=== PATIENT | male | born 1955 | race Caucasian/White ===

== ENCOUNTER 2016-12-25 11:47 | Emergency (ER) | payer OTHER, BC ==
[~2016-12-25] VITALS: Ht 177.8 cm; Wt 124.9 kg
[~2016-12-25 11:47] MED LIST: ABILIFY10 MG PO; ABILIFY5 MG PO; ADVIL200 MG PO; ANAPROX DS550 M1 PO; ATIVAN0.5 M1 GT; ATIVAN0.5 MG PO; AZITHROMYCIN500 M1 PO; BUPROPION HCL100 MG PO; BUSPAR10 MG PO; BUSPAR30 MG PO; BUSPIRONE HCL10 MG PO; CEFTIN500 MG PO; CYMBALTA60 MG PO; EFFEXOR XR75 MG PO; ESCITALOPRAM OX10 MG PO; FINASTERIDE5 M1 PO; FLEXERIL5 MG PO; FLOMAX0.4 M1 PO; FLOMAX0.4 MG PO; FLOVENT 11120 INHALA IH; HYDROCODON-ACE1 EAC7 PO; KEFLEX500 MG PO; LANTUS 3 M100 UNITS1 SC; LEXAPRO10 MG PO; LO-DOSE ASPIRIN81 M1 PO; LOPRESSOR100 M1 PO; LORAZEPAM0.5 MG PO; LORCET 5-325 M1 EACH PO; LOXAPINE10 MG PO; LOXITANE PO; LYRICA100 MG PO; LYRICA200 MG PO; LYRICA300 MG PO; MECLIZINE HCL25 MG PO; METOPROLOL SUCC25 MG PO; METOPROLOL TART50 MG PO; MOTRIN400 MG PO; PREDNISONE20 MG PO; PROTONIX40 MG PO; PROZAC40 MG PO; QVAR 80 MCG IN7.3 GM IH; RISPERDAL3 MG PO; RISPERDAL4 MG PO; SIMVASTATIN40 M1 PO; SLEEP AID25 M2 PO; TRAMADOL HCL50 MG PO; ULTRAM50 MG PO; VENLAFAXINE HCL75 M3 PO; VENTOLIN HFA18 GM IH; WELLBUTRIN XL300 MG PO; WELLBUTRIN100 MG PO; ZITHROMAX250 MG PO
[2016-12-25 12:05] VITALS: BP 118/79
[2016-12-25 12:20] LABS: POINT-OF-CARE METER ID UU13113778
== END 2016-12-25 16:00 | disposition left against medical advice (07) ==
LOC: EME 11:47
DX: R42 Dizziness and giddiness (principal); H53.8 Other visual disturbances; Z53.21 Procedure and treatment not carried out due to patient leaving prior to being seen by health care provider
CPT/HCPCS: 82948

== ENCOUNTER 2017-05-18 06:15 | Inpatient (IN) | payer OTHER, BC ==
[2017-05-18] VITALS (8 sets, daily range): BP systolic 93–129; BP diastolic 56–77
[~2017-05-18] VITALS: Ht 177.8 cm; Wt 126.8 kg
[2017-05-18 07:05] LABS: HEMATOCRIT 43.7 % (38.0-50.0); MCH 28.7 PG (29.0-34.0); MCHC 32.7 G/DL (30.0-36.0); MCV 87.6 FL (86-99); MEAN PLAT.VOLUME 11.6 uM^3 (9.0-12.4); PLATELET COUNT 195 K/uL (156-360); RBC DIS.WIDTH-CV 13.2 % (11.8-14.6); RED BLOOD COUNT 4.99 M/uL (4.00-5.50); WHITE BLOOD COUNT 21.8 K/uL (4.1-10.2)
[2017-05-18] MEDS ORDERED: LYRICA200 MG PO (07:16)
[2017-05-18] MEDS ORDERED: WELLBUTRIN XL300 MG PO (07:17)
[2017-05-18] MEDS ORDERED: LEXAPRO20 MG PO (07:18)
[2017-05-18] MEDS ORDERED: LO-DOSE ASPIRIN81 M2 PO (07:20)
[2017-05-18] MEDS ORDERED: METOPROLOL SUCC25 MG PO (07:20)
[2017-05-18] MEDS ORDERED: FLOVENT 11120 INHALA IH (07:21)
[2017-05-18] MEDS ORDERED: COLACE CLEAR50 MG PO (07:21)
[2017-05-18] MEDS ORDERED: NOVOLIN N100 UNITS/ SC (07:22)
[2017-05-18 07:32] LABS: ANION GAP 12 MEQ/L (2-14); CHLORIDE 98 MEQ/L (99-109); POTASSIUM 3.7 MEQ/L (3.7-5.4); SAMPLE HEMOLYSIS CHECK 0; SAMPLE ICTERIC CHECK 0; SAMPLE LIPEMIA CHECK 0; SODIUM 133 MEQ/L (136-147); TOTAL BILIRUBIN 0.9 MG/DL (0.0-1.0)
[2017-05-18 07:37] LABS: TROP-I INTERPRETATION NEGATIVE; TROPONIN-I < 0.01 ng/mL (0.0-0.30)
[2017-05-18 07:38] LABS: ALKALINE PHOSPHATASE 34 IU/L (3-129); GFR ESTIMATE (CALCULATED) > 59 mL/min/; GLUCOSE 192 mg/dL (70-99); LIPASE 5 U/L (1.0-51.0); UREA NITROGEN (BUN) 15 mg/dL (9-23)
[2017-05-18 09:00] LABS: POINT-OF-CARE METER ID UU14100415
[2017-05-18 12:50] LABS: POINT-OF-CARE METER ID UU14208750
[2017-05-18 20:50] LABS: POINT-OF-CARE METER ID UU13113675
[2017-05-18 21:00] LABS: BASE EXCESS 0 mEq/L (-3 to +3); BICARBONATE 26.4 mEq/L (22-26); CARBOXY HGB 2.2 % (0-5); METHEMOGLOBIN 1.8 % (0-1.5); PCO2 49 mm Hg (35-45); PO2 83 mm Hg (80-100); pH 7.34 (7.35-7.45)
[2017-05-18 21:01] LABS: COMMENTS - BLOOD GASES A+C+; DEVICE VENT; FI02 100 %; MECHANICAL RATE 10 resp/min; MODE AC; SITE RR; TOTAL RESP RATE 10 resp/min
[2017-05-18 21:02] LABS: PEEP 5 CM/H20; TIDAL VOLUME 700 ML
[2017-05-18 21:49] LABS: EOSINOPHIL (%) 0 % (0-5); HEMATOCRIT 38.7 % (38.0-50.0); IMMATURE GRANULOCYTE (%) 0.7 % (0.0-0.7); IMMATURE GRANULOCYTE COUNT 0.2 K/uL; INSTRUMENT ABS NEUTROPHIL CT 22.2 K/uL; LYMPHOCYTE COUNT 0.9 K/uL (1.0-2.8); MCH 29.5 PG (29.0-34.0); MCHC 32.6 G/DL (30.0-36.0); MCV 90.6 FL (86-99); MEAN PLAT.VOLUME 11.2 uM^3 (9.0-12.4); MONOCYTE (%) 9.2 % (3-12); MONOCYTE COUNT 2.4 K/uL (0-0.8); NEUTROPHIL (%) 86.5 % (45-76); NEUTROPHIL COUNT 22.2 K/uL (1.8-6.4); PLATELET COUNT 188 K/uL (156-360); RBC DIS.WIDTH-CV 13.5 % (11.8-14.6); RBC DIS.WIDTH-SD 45.4 % (39-53); RED BLOOD COUNT 4.27 M/uL (4.00-5.50); WHITE BLOOD COUNT 25.6 K/uL (4.1-10.2)
[2017-05-18 21:59] LABS: BASE EXCESS 0.3 mEq/L (-3 to +3); CARBOXY HGB 2.4 % (0-5); METHEMOGLOBIN 1.7 % (0-1.5); PCO2 45 mm Hg (35-45); pH 7.37 (7.35-7.45)
[2017-05-18 22:00] LABS: ANION GAP 10 MEQ/L (2-14); CHLORIDE 102 MEQ/L (99-109); MAGNESIUM 1.6 mg/dl (1.3-2.7); POTASSIUM 4.1 MEQ/L (3.7-5.4); SAMPLE HEMOLYSIS CHECK 0; SAMPLE ICTERIC CHECK 0; SAMPLE LIPEMIA CHECK 0; SODIUM 135 MEQ/L (136-147)
[2017-05-18 22:00] LABS: COMMENTS - BLOOD GASES A+C+; DEVICE VENT; FI02 50 %; MECHANICAL RATE 16 resp/min; MODE AC; PEEP 5 CM/H20; PO2 66 mm Hg (80-100); SITE RR; TIDAL VOLUME 600 ML; TOTAL RESP RATE 16 resp/min
[2017-05-18 22:22] LABS: ALKALINE PHOSPHATASE 25 IU/L (3-129); GFR ESTIMATE (CALCULATED) > 59 mL/min/; GLUCOSE 163 mg/dL (70-99); UREA NITROGEN (BUN) 17 mg/dL (9-23)
[2017-05-18 23:07] LABS: METH RESISTANT S AUREUS PCR NEGATIVE (NEGATIVE)
[2017-05-18 23:08] LABS: PROBE CHECK PASS; SPECIMEN PROCESSING CONTROL PASS
[2017-05-18 23:57] LABS: CREATINE KINASE 332 IU/L (1-294)
[2017-05-19] VITALS (26 sets, daily range): BP systolic 84–156; BP diastolic 45–82
[2017-05-19 05:30] LABS: POINT-OF-CARE METER ID UU13113731
[2017-05-19 05:38] LABS: ADD MIUA? YES; BILIRUBIN NEGATIVE; BLOOD LARGE; COLOR YELLOW ((YELLOW)); GLUCOSE (STRIP) NEGATIVE; KETONES NEGATIVE; LEUKOCYTES NEGATIVE; NITRITE NEGATIVE; PROTEIN (STRIP) 30; SPECIFIC GRAVITY 1.018 (1.000-1.030); UROBILINOGEN 0.2 MG/DL (0.2-1.0)
[2017-05-19 05:47] LABS: EOSINOPHIL (%) 0.1 % (0-5); HEMATOCRIT 36.1 % (38.0-50.0); IMMATURE GRANULOCYTE (%) 0.5 % (0.0-0.7); LYMPHOCYTE COUNT 1.8 K/uL (1.0-2.8); MCHC 31.9 G/DL (30.0-36.0); MCV 90.9 FL (86-99); MEAN PLAT.VOLUME 11.7 uM^3 (9.0-12.4); MONOCYTE (%) 9.9 % (3-12); MONOCYTE COUNT 1.8 K/uL (0-0.8); NEUTROPHIL (%) 79.6 % (45-76); PLATELET COUNT 156 K/uL (156-360); RBC DIS.WIDTH-CV 13.4 % (11.8-14.6); RBC DIS.WIDTH-SD 45.6 % (39-53); RED BLOOD COUNT 3.97 M/uL (4.00-5.50); WHITE BLOOD COUNT 18.1 K/uL (4.1-10.2)
[2017-05-19 05:48] LABS: IMMATURE GRANULOCYTE COUNT 0.1 K/uL; INSTRUMENT ABS NEUTROPHIL CT 14.4 K/uL; NEUTROPHIL COUNT 14.4 K/uL (1.8-6.4)
[2017-05-19 06:04] LABS: RED BLOOD CELLS 15-20 /HPF (0-5)
[2017-05-19 06:05] LABS: BACTERIA 2+ /HPF; CASTS NONE SEEN /LPF; EPITHELIAL CELLS RARE /HPF; MUCUS NONE SEEN /LPF; UCUL ADDED? NO; WHITE BLOOD CELLS NONE SEEN /HPF (0-5)
[2017-05-19 06:06] LABS: AMORPHOUS URATES CRYSTALS 2+; CRYSTALS PRESENT
[2017-05-19 06:10] LABS: ALKALINE PHOSPHATASE 26 IU/L (3-129); ANION GAP 9 MEQ/L (2-14); CHLORIDE 105 MEQ/L (99-109); GFR ESTIMATE (CALCULATED) > 59 mL/min/; GLUCOSE 113 mg/dL (70-99); POTASSIUM 3.8 MEQ/L (3.7-5.4); SAMPLE HEMOLYSIS CHECK 0; SAMPLE ICTERIC CHECK 0; SAMPLE LIPEMIA CHECK 0; SODIUM 138 MEQ/L (136-147); TOTAL BILIRUBIN 0.7 MG/DL (0.0-1.0); UREA NITROGEN (BUN) 16 mg/dL (9-23)
[2017-05-19 11:14] LABS: BASE EXCESS 0.5 mEq/L (-3 to +3); BICARBONATE 25.4 mEq/L (22-26); CARBOXY HGB 1.4 % (0-5); METHEMOGLOBIN 1.5 % (0-1.5); PCO2 41 mm Hg (35-45); PO2 67 mm Hg (80-100)
[2017-05-19 11:15] LABS: COMMENTS - BLOOD GASES NAC+; CONTINUOUS POS AIRWAY PRESSURE 5 cm H2O; DEVICE 840; FI02 50 %; MODE SPONT; PRES. SUPPORT 15 CM/H2O; SITE LR; TOTAL RESP RATE 27 resp/min
[2017-05-19 11:56] LABS: POINT-OF-CARE METER ID UU13113731
[2017-05-19 15:02] LABS: ANION GAP 9 MEQ/L (2-14); CHLORIDE 107 MEQ/L (99-109); POTASSIUM 3.7 MEQ/L (3.7-5.4); SAMPLE HEMOLYSIS CHECK 0; SAMPLE ICTERIC CHECK 0; SAMPLE LIPEMIA CHECK 0; SODIUM 140 MEQ/L (136-147)
[2017-05-19 15:07] LABS: GFR ESTIMATE (CALCULATED) > 59 mL/min/; GLUCOSE 134 mg/dL (70-99); UREA NITROGEN (BUN) 12 mg/dL (9-23)
[2017-05-19 18:06] LABS: POINT-OF-CARE METER ID UU13113731
[2017-05-20] VITALS (20 sets, daily range): BP systolic 110–146; BP diastolic 54–86
[2017-05-20 05:23] LABS: POINT-OF-CARE METER ID UU13113748
[2017-05-20 06:07] LABS: ALKALINE PHOSPHATASE 27 IU/L (3-129); ANION GAP 8 MEQ/L (2-14); CHLORIDE 106 MEQ/L (99-109); GFR ESTIMATE (CALCULATED) > 59 mL/min/; POTASSIUM 3.7 MEQ/L (3.7-5.4); SAMPLE HEMOLYSIS CHECK 0; SAMPLE ICTERIC CHECK 0; SAMPLE LIPEMIA CHECK 0; SODIUM 140 MEQ/L (136-147); TOTAL BILIRUBIN 0.6 MG/DL (0.0-1.0); UREA NITROGEN (BUN) 10 mg/dL (9-23)
[2017-05-20 06:33] LABS: GLUCOSE 83 mg/dL (70-99)
[2017-05-20 09:00] LABS: MCH 29.6 PG (29.0-34.0); MCHC 32.1 G/DL (30.0-36.0); MCV 92.4 FL (86-99); MEAN PLAT.VOLUME 12.1 uM^3 (9.0-12.4); PLATELET COUNT 150 K/uL (156-360); RBC DIS.WIDTH-CV 13.4 % (11.8-14.6); RBC DIS.WIDTH-SD 45.9 % (39-53); RED BLOOD COUNT 3.68 M/uL (4.00-5.50); WHITE BLOOD COUNT 11.3 K/uL (4.1-10.2)
[2017-05-20 12:27] LABS: POINT-OF-CARE METER ID UU14162636
[2017-05-20 17:26] LABS: POINT-OF-CARE METER ID UU13113731
[2017-05-20 22:18] LABS: POINT-OF-CARE METER ID UU14162636
[2017-05-21] VITALS (10 sets, daily range): BP systolic 116–152; BP diastolic 69–127
[2017-05-21 08:16] LABS: POINT-OF-CARE METER ID UU14174217
[2017-05-21 12:25] LABS: POINT-OF-CARE METER ID UU14208751
[2017-05-21 16:28] LABS: POINT-OF-CARE METER ID UU13113725
[2017-05-22 03:05] VITALS: BP 144/75
[2017-05-22 06:15] LABS: POINT-OF-CARE METER ID UU13113725
[2017-05-22 07:28] VITALS: BP 140/75
[2017-05-22 10:31] LABS: MCH 29.4 PG (29.0-34.0); MCHC 33.2 G/DL (30.0-36.0); MCV 88.8 FL (86-99); MEAN PLAT.VOLUME 10.9 uM^3 (9.0-12.4); RBC DIS.WIDTH-CV 13.1 % (11.8-14.6); RBC DIS.WIDTH-SD 42.8 % (39-53); RED BLOOD COUNT 4.28 M/uL (4.00-5.50)
[2017-05-22 10:37] LABS: PLATELET COUNT 256 K/uL (156-360)
[2017-05-22 10:56] LABS: ALKALINE PHOSPHATASE 36 IU/L (3-129); ANION GAP 12 MEQ/L (2-14); CHLORIDE 98 MEQ/L (99-109); GFR ESTIMATE (CALCULATED) > 59 mL/min/; LIPASE 12 U/L (1.0-51.0); POTASSIUM 3.4 MEQ/L (3.7-5.4); SAMPLE HEMOLYSIS CHECK 0; SAMPLE ICTERIC CHECK 0; SAMPLE LIPEMIA CHECK 0; SODIUM 141 MEQ/L (136-147); TOTAL BILIRUBIN 0.5 MG/DL (0.0-1.0); UREA NITROGEN (BUN) 18 mg/dL (9-23)
[2017-05-22 10:57] LABS: GLUCOSE 155 mg/dL (70-99)
[2017-05-22 11:00] LABS: POINT-OF-CARE METER ID UU13113725
[2017-05-22 11:29] VITALS: BP 146/79
[2017-05-22 16:31] LABS: POINT-OF-CARE METER ID UU13113725
[2017-05-22 16:44] VITALS: BP 165/83
[2017-05-22 19:41] VITALS: BP 141/84
[2017-05-22 20:57] LABS: POINT-OF-CARE METER ID UU13113725
[2017-05-22 23:40] VITALS: BP 152/81
[2017-05-23 03:45] VITALS: BP 154/84
[2017-05-23 06:06] LABS: POINT-OF-CARE METER ID UU13113725
[2017-05-23 06:53] LABS: EOSINOPHIL (%) 1.2 % (0-5); EOSINOPHIL COUNT 0.1 K/uL (0-0.3); HEMATOCRIT 34.6 % (38.0-50.0); IMMATURE GRANULOCYTE (%) 1.1 % (0.0-0.7); IMMATURE GRANULOCYTE COUNT 0.1 K/uL; INSTRUMENT ABS NEUTROPHIL CT 9.1 K/uL; LYMPHOCYTE COUNT 1.5 K/uL (1.0-2.8); MCHC 32.7 G/DL (30.0-36.0); MCV 88.7 FL (86-99); MONOCYTE (%) 10.4 % (3-12); MONOCYTE COUNT 1.3 K/uL (0-0.8); NEUTROPHIL (%) 74.4 % (45-76); NEUTROPHIL COUNT 9.1 K/uL (1.8-6.4); PLATELET COUNT 251 K/uL (156-360); RBC DIS.WIDTH-CV 13.2 % (11.8-14.6); WHITE BLOOD COUNT 12.1 K/uL (4.1-10.2)
[2017-05-23 07:22] LABS: ANION GAP 11 MEQ/L (2-14); CHLORIDE 100 MEQ/L (99-109); GFR ESTIMATE (CALCULATED) > 59 mL/min/; GLUCOSE 127 mg/dL (70-99); POTASSIUM 3.4 MEQ/L (3.7-5.4); SAMPLE HEMOLYSIS CHECK 0; SAMPLE ICTERIC CHECK 0; SAMPLE LIPEMIA CHECK 0; SODIUM 141 MEQ/L (136-147); UREA NITROGEN (BUN) 18 mg/dL (9-23)
[2017-05-23 07:41] VITALS: BP 145/65
[2017-05-23 11:37] LABS: POINT-OF-CARE METER ID UU13113725
[2017-05-23 11:40] VITALS: BP 159/85
[2017-05-23] MEDS ORDERED: ULTRAM50 MG PO (14:06)
[2017-05-23] MEDS ORDERED: DUONEB 2.5-0.5 M3 ML AEROSOL (14:06)
[2017-05-23] MEDS ORDERED: NOVOLOG PE100 UNITS/ SC (14:06)
[2017-05-23] MEDS ORDERED: TAMSULOSIN HCL0.4 MG PO (14:06)
[2017-05-23 16:33] LABS: POINT-OF-CARE METER ID UU13113725
== END 2017-05-23 18:00 | disposition home health service (06) | DRG 853 ==
LOC: EME 06:15 → EDOF 10:19 → 4WEST 10:19 → 2EAST 10:19 → EDOF 10:25 → 4WEST 12:10 → 2EAST 12:14 → 2SOUTH 20:47 → 4WEST 21:05 → 5EAST 05-21 12:43
PROVIDERS: Emergency Medicine; Hospitalist; Internal Medicine; Internal Medicine Critical Care Medicine; Physician Assistant Surgical; Surgery
PROC: 0FT44ZZ Resection of Gallbladder, Percutaneous Endoscopic Approach (ICD-10-PCS; principal; 2017-05-18)
PROC: 0T9B70Z Drainage of Bladder with Drainage Device, Via Natural or Artificial Opening (ICD-10-PCS; 2017-05-18)
DX: A41.9 Sepsis, unspecified organism (principal); R65.21 Severe sepsis with septic shock; K81.0 Acute cholecystitis; K82.1 Hydrops of gallbladder; K65.1 Peritoneal abscess; N17.9 Acute kidney failure, unspecified; J44.1 Chronic obstructive pulmonary disease with (acute) exacerbation; D64.9 Anemia, unspecified; J98.11 Atelectasis; E11.9 Type 2 diabetes mellitus without complications; E78.00 Pure hypercholesterolemia, unspecified; F32.9 Major depressive disorder, single episode, unspecified; F42.9 Obsessive-compulsive disorder, unspecified; G47.33 Obstructive sleep apnea (adult) (pediatric); I10 Essential (primary) hypertension; I25.10 Atherosclerotic heart disease of native coronary artery without angina pectoris; K21.9 Gastro-esophageal reflux disease without esophagitis; N40.1 Benign prostatic hyperplasia with lower urinary tract symptoms; R33.8 Other retention of urine; F41.9 Anxiety disorder, unspecified; E66.01 Morbid (severe) obesity due to excess calories; Z79.82 Long term (current) use of aspirin; Z68.39 Body mass index [BMI] 39.0-39.9, adult; Z79.4 Long term (current) use of insulin; Z87.891 Personal history of nicotine dependence; I25.2 Old myocardial infarction
CPT/HCPCS: 36600; 71010; 71020; 74176; 80048; 80048 91; 80053; 80202; 81003; 82550 91; 82803; 82948; 83605; 83690; 83735; 84100; 84484; 85025; 85027; 87040; 87070; 87086; 87205; 87641; 88304; 93005; 93306; 94002; 94003; 94010; 94640; 94640 76; 94667; 94668; 94760; 94799; 97530 GO; 99202; 99281; 99285; J0330; J0610; J1644; J1815; J1940; J2270; J2370; J2405; J2543; J2704; J2710; J3010; J3370; J3475; J7030; J7040; J7050; J7120; S0020; S0028

== ENCOUNTER 2017-10-03 21:06 | Emergency (ER) | payer OTHER, BC ==
[~2017-10-03] VITALS: Ht 177.8 cm; Wt 116.3 kg
[~2017-10-03 21:06] MED LIST changes: +COLACE CLEAR50 MG PO; +DUONEB 2.5-0.5 M3 ML AEROSOL; +LEXAPRO20 MG PO; +LO-DOSE ASPIRIN81 M2 PO; +NOVOLIN N100 UNITS/ SC; +NOVOLOG PE100 UNITS/ SC; +TAMSULOSIN HCL0.4 MG PO
[2017-10-03] MEDS ORDERED: DOXYCYCLINE HY100 MG PO (23:23)
[2017-10-03] MEDS ORDERED: HYCODAN SYRUP480 ML PO (23:23)
[2017-10-03 23:42] VITALS: BP 131/91
== END 2017-10-04 | disposition home or self-care (01) ==
LOC: EXP 21:06 → EME 21:06 → EXP 10-04
DX: J44.0 Chronic obstructive pulmonary disease with (acute) lower respiratory infection (principal); J20.9 Acute bronchitis, unspecified; I25.2 Old myocardial infarction; F42.9 Obsessive-compulsive disorder, unspecified; F41.9 Anxiety disorder, unspecified; F32.9 Major depressive disorder, single episode, unspecified; Z79.82 Long term (current) use of aspirin; Z87.891 Personal history of nicotine dependence
CPT/HCPCS: 71020; 87502; 99281; 99283

== ENCOUNTER 2018-01-14 11:59 | Emergency (ER) | payer OTHER, BC ==
[~2018-01-14] VITALS: Ht 177.8 cm; Wt 113.8 kg
[~2018-01-14 11:59] MED LIST changes: +DOXYCYCLINE HY100 MG PO; +HYCODAN SYRUP480 ML PO
[2018-01-14 13:34] LABS: HEMATOCRIT 43.4 % (38.0-50.0); HEMOGLOBIN 14.4 G/DL (12.5-16.6); MCH 28.9 PG (29.0-34.0); MCHC 33.2 G/DL (30.0-36.0); MCV 87.1 FL (86-99); PLATELET COUNT 238 K/uL (156-360); RBC DIS.WIDTH-CV 13.1 % (11.8-14.6); RED BLOOD COUNT 4.98 M/uL (4.00-5.50); WHITE BLOOD COUNT 14.3 K/uL (4.1-10.2)
[2018-01-14 13:43] LABS: ALBUMIN 3.8 g/dL (3.2-4.8); CHLORIDE 100 mEq/L (99-109); SODIUM 133 mEq/L (136-147)
[2018-01-14 13:46] LABS: TOTAL PROTEIN 8.4 g/dL (6.4-8.3)
[2018-01-14 13:47] LABS: TOTAL BILIRUBIN 0.6 mg/dL (0.0-1.0)
[2018-01-14 13:49] LABS: ALKALINE PHOSPHATASE 53 IU/L (3-129); CREATININE 1.2 mg/dL (0.6-1.3); GFR ESTIMATE (CALCULATED) > 59 mL/min/ (58.99-99999)
[2018-01-14 13:50] LABS: UREA NITROGEN (BUN) 24 mg/dL (9-23)
[2018-01-14 13:51] LABS: AST (GOT) 26 IU/L (2-34)
[2018-01-14 13:52] LABS: ALT (GPT) 24 IU/L (3-49)
[2018-01-14 14:01] LABS: GLUCOSE 449 mg/dL (70-99)
[2018-01-14 17:15] LABS: APPEARANCE CLEAR ((CLEAR)); BILIRUBIN NEGATIVE; BLOOD NEGATIVE; COLOR YELLOW ((YELLOW)); GLUCOSE (STRIP) >=500; KETONES 20; LEUKOCYTES NEGATIVE; NITRITE NEGATIVE; PROTEIN (STRIP) 30; SPECIFIC GRAVITY 1.026 (1.000-1.030); UCUL ADDED? NO; UROBILINOGEN 0.2 MG/DL (0.2-1.0)
[2018-01-14 17:58] VITALS: BP 97/68
== END 2018-01-14 17:59 | disposition home or self-care (01) ==
LOC: EME 11:59
PROVIDERS: Emergency Medicine
DX: E11.65 Type 2 diabetes mellitus with hyperglycemia (principal); J44.9 Chronic obstructive pulmonary disease, unspecified; I25.2 Old myocardial infarction; F41.9 Anxiety disorder, unspecified; F32.9 Major depressive disorder, single episode, unspecified; Z87.891 Personal history of nicotine dependence; Z79.4 Long term (current) use of insulin; Z79.82 Long term (current) use of aspirin
CPT/HCPCS: 71046; 80053; 81003; 82948; 85027; 99281; 99284; J7030